=== PATIENT | female | born 2000 | race Caucasian/White ===

== ENCOUNTER 2022-05-29 07:32 | Day surgery (SDC) | payer MEDICAID ==
[~2022-05-29] VITALS: Ht 165.1 cm; Wt 90.0 kg
[2022-05-29] MEDS ORDERED: fentaNYL/PF 50MCG/1 ML 2ML syringe ONE (07:33)
[2022-05-29] MEDS ORDERED: MIDAZolam 1 MG/ML 5ML VIAL ONE (07:33)
[2022-05-29 07:40] VITALS: BP 101/69
[2022-05-29] MEDS ORDERED: METO-292 PO (08:01)
[2022-05-29] MEDS ORDERED: ONDA4TAB12 PO (08:05)
[2022-05-29] MEDS ORDERED: OMEP20CA16 PO (08:06)
[2022-05-29] MEDS ORDERED: DIPH25CA83 PO (08:07)
[2022-05-29] MEDS ORDERED: LIDOcaine Viscous 15ml cup ONE (08:35)
[2022-05-29] MEDS ORDERED: diphenhydrAMINE 50 mg/ml inj ONE (08:35)
[2022-05-29] MEDS ORDERED: ondansetron/PF 4mg/2ml inj ONE (08:59)
[2022-05-29 09:06] VITALS: BP 125/97
[2022-05-29 09:16] VITALS: BP 118/71
[2022-05-29 09:26] VITALS: BP 110/80
== END 2022-05-29 09:53 | disposition home or self-care (01) ==
LOC: GI LAB 07:32
PROVIDERS: ATTEND Internal Medicine Gastroenterology
DX: R11.2 Nausea with vomiting, unspecified (principal); K31.89 Other diseases of stomach and duodenum; F17.210 Nicotine dependence, cigarettes, uncomplicated; Z91.040 Latex allergy status; Z91.011 Allergy to milk products
CPT/HCPCS: 43239; 99152; J1200; J2250; J2405; J3010; J7030; Z7512; A4620

== ENCOUNTER 2022-07-23 11:05 | Emergency (ER) | payer MEDICAID ==
[~2022-07-23 11:05] MED LIST: DIPH25CA83 PO; METO-292 PO; OMEP20CA16 PO; ONDA4TAB12 PO
== END 2022-07-23 12:14 | disposition left against medical advice (07) ==
LOC: ER 11:06
DX: R11.10 Vomiting, unspecified (principal); Z53.21 Procedure and treatment not carried out due to patient leaving prior to being seen by health care provider

== ENCOUNTER 2022-07-26 19:44 | Emergency (ER) | payer MEDICAID ==
[~2022-07-26] VITALS: Ht 167.6 cm; Wt 80.2 kg
--- NOTE | 2022-07-26 20:08 | NUR ---
Pt in [facility]. Pt c/o N/V x11 days. Pt unable keep anything down. Pending providers eval and treatment.
[2022-07-26] MEDS ORDERED: diphenhydrAMINE 50 mg/ml inj IV ONE (20:20)
[2022-07-26] MEDS ORDERED: normal saline 1000ml 1,000 ML IV ONE ×2 (20:20→21:45)
[2022-07-26] MEDS ORDERED: metoclopramide 5 mg/ml inj IV ONE (20:20)
[2022-07-26 20:25] LABS: BASOPHILS # (AUTO) 0.1 X10'3 (0-0.2); BASOPHILS % (AUTO) 0.6 % (0-1); EOSINOPHILS % (AUTO) 0.2 % (0-6); HEMATOCRIT 43.6 % (35.0-45.0); HEMOGLOBIN 14.8 g/dl (12.0-16.0); LYMPHOCYTES # (AUTO) 1.9 X10'3 (1.1-4.8); LYMPHOCYTES % (AUTO) 11.7 % (21-51); MEAN CORPUSCULAR HEMOGLOBIN 28.8 PG (27.0-31.0); MEAN CORPUSCULAR HGB CONC 33.9 g/dL (33.0-36.5); MEAN CORPUSCULAR VOLUME 84.8 FL (78-98); MEAN PLATELET VOLUME 7.6 FL (7.4-10.4); MONOCYTES # (AUTO) 0.8 X10'3 (0-0.9); MONOCYTES % (AUTO) 4.7 % (2-12); NEUTROPHILS # (AUTO) 13.7 X10'3 (1.8-7.7); NEUTROPHILS % (AUTO) 82.8 % (42-75); PLATELET COUNT 413 X10'3 (140-440); RED BLOOD COUNT 5.14 X10'6 (4.20-5.60); WHITE BLOOD COUNT 16.5 X10'3 (4.5-11.0)
[2022-07-26 20:41] LABS: ALANINE AMINOTRANSFERASE 19 U/L (12-78); ALBUMIN 4.6 G/DL (3.4-5.0); ALKALINE PHOSPHATASE 64 IU/L (46-116); ANION GAP 19 (8-16); ASPARTATE AMINO TRANSFERASE 10 U/L (10-37); BILIRUBIN,TOTAL 0.8 MG/DL (0.1-1.0); BLOOD UREA NITROGEN 14 MG/DL (7-18); BUN/CREATININE RATIO 20.6 (10.0-20.0); CALCIUM 10.5 MG/DL (8.5-10.1); CHLORIDE 98 MMOL/L (99-107); CREATININE 0.68 MG/DL (0.40-0.90); GLUCOSE 111 MG/DL (70-104); LIPASE < 50 U/L (73-393); POTASSIUM 3.1 MMOL/L (3.5-5.1); SODIUM 137 MMOL/L (135-145); TOTAL CARBON DIOXIDE 19.7 MMOL/L (24-32); TOTAL PROTEIN 9.2 G/DL (6.4-8.2); eGFR > 90 ML/MIN
[2022-07-26 22:08] VITALS: BP 110/64
[2022-07-26 22:19] LABS: URINE HCG NEGATIVE (NEG)
[2022-07-26 22:22] LABS: CLARITY,URINE CLEAR (Clear); GLUCOSE, URINE NEGATIVE (Neg); KETONES,URINE >=80 mg/dl (Neg); LEUKOCYTE ESTERASE ,URINE NEGATIVE (Neg); NITRITES, URINE NEGATIVE (Neg); OCCULT BLOOD,URINE TRACE-INTACT (Neg); PROTEIN,URINE 100 mg/dl (Neg); UROBILINOGEN,URINE 0.2 E.U/dL (0.2-1.0)
[2022-07-26] MEDS ORDERED: ondansetron/PF 4mg/2ml inj IV ONE (22:25)
[2022-07-26 22:27] LABS: COLOR,URINE AMBER (Yellow); UA COLLECTION TYPE VOIDED
[2022-07-26 22:28] LABS: WBC,URINE 0-4 /HPF (0-4)
[2022-07-26 22:29] LABS: BACTERIA,URINE FEW /HPF (Neg); MUCUS STRANDS MANY /LPF (Neg); SQUAMOUS EPITHELIAL CELL,UR MODERATE /LPF (FEW)
== END 2022-07-26 22:58 | disposition home or self-care (01) ==
LOC: ER 19:45
DX: R11.15 Cyclical vomiting syndrome unrelated to migraine (principal); F17.200 Nicotine dependence, unspecified, uncomplicated; Z91.040 Latex allergy status; Z88.8 Allergy status to other drugs, medicaments and biological substances; Z79.899 Other long term (current) drug therapy; Z79.1 Long term (current) use of non-steroidal anti-inflammatories (NSAID); Z79.2 Long term (current) use of antibiotics
CPT/HCPCS: 80053; 81001; 81025; 83690; 85025; 96361; 96374; 96375; 99284; J1200; J2405; J2765; J7030

== ENCOUNTER 2022-07-28 12:25 | Emergency (ER) | payer MEDICAID ==
[~2022-07-28] VITALS: Ht 167.6 cm; Wt 88.0 kg
[2022-07-28] MEDS ORDERED: haloperidol lactate 5mg/ml inj IM ONE (13:45)
[2022-07-28] MEDS ORDERED: diphenhydrAMINE 50 mg/ml inj IV ONE (13:45)
[2022-07-28] MEDS ORDERED: normal saline 1000ml 1,000 ML IV ONE ×2 (13:45→15:50)
[2022-07-28] MEDS ORDERED: ondansetron/PF 4mg/2ml inj IV ONE (13:45)
[2022-07-28 14:24] LABS: BASOPHILS # (AUTO) 0.1 X10'3 (0-0.2); BASOPHILS % (AUTO) 0.7 % (0-1); EOSINOPHILS % (AUTO) 0.1 % (0-6); HEMATOCRIT 41.1 % (35.0-45.0); HEMOGLOBIN 13.7 g/dl (12.0-16.0); LYMPHOCYTES # (AUTO) 2.7 X10'3 (1.1-4.8); LYMPHOCYTES % (AUTO) 21.9 % (21-51); MEAN CORPUSCULAR HEMOGLOBIN 28.6 PG (27.0-31.0); MEAN CORPUSCULAR HGB CONC 33.5 g/dL (33.0-36.5); MEAN CORPUSCULAR VOLUME 85.5 FL (78-98); MEAN PLATELET VOLUME 7.6 FL (7.4-10.4); MONOCYTES # (AUTO) 1.1 X10'3 (0-0.9); MONOCYTES % (AUTO) 9.2 % (2-12); NEUTROPHILS # (AUTO) 8.4 X10'3 (1.8-7.7); NEUTROPHILS % (AUTO) 68.1 % (42-75); PLATELET COUNT 341 X10'3 (140-440); RED BLOOD COUNT 4.81 X10'6 (4.20-5.60); RED CELL DISTRIBUTION WIDTH 15.7 % (11.5-14.5); WHITE BLOOD COUNT 12.4 X10'3 (4.5-11.0)
[2022-07-28 14:30] LABS: ALANINE AMINOTRANSFERASE 23 U/L (12-78); ALBUMIN 4.3 G/DL (3.4-5.0); ALBUMIN/GLOBULIN RATIO 1.1 (1.1-1.5); ALKALINE PHOSPHATASE 57 IU/L (46-116); ANION GAP 14 (8-16); ASPARTATE AMINO TRANSFERASE 16 U/L (10-37); BILIRUBIN,TOTAL 0.7 MG/DL (0.1-1.0); BLOOD UREA NITROGEN 9 MG/DL (7-18); BUN/CREATININE RATIO 12.7 (10.0-20.0); CALCIUM 10.1 MG/DL (8.5-10.1); CHLORIDE 100 MMOL/L (99-107); CREATININE 0.71 MG/DL (0.40-0.90); GLUCOSE 92 MG/DL (70-104); LIPASE 56 U/L (73-393); MAGNESIUM 1.7 MG/DL (1.5-2.4); POTASSIUM 3.3 MMOL/L (3.5-5.1); SODIUM 141 MMOL/L (135-145); TOTAL CARBON DIOXIDE 27.3 MMOL/L (24-32); TOTAL PROTEIN 8.1 G/DL (6.4-8.2); eGFR > 90 ML/MIN
--- NOTE | 2022-07-28 14:48 | NUR ---
Pt in ER15. Pt conts to c/o N/V. Pt was seen here on Fri for the same issues. Pt staes understanding r/t POC. Pt in agreement. Pending MD lucas and treatment.
[2022-07-28] MEDS ORDERED: PROC25SU31 RC (15:53)
[2022-07-28] MEDS ORDERED: HALO10TA13 PO (15:53)
[2022-07-28] MEDS ORDERED: CAPS60CR6 TP (15:53)
[2022-07-28 16:52] VITALS: BP 127/71
== END 2022-07-28 17:00 | disposition home or self-care (01) ==
LOC: ER 12:25
DX: R11.15 Cyclical vomiting syndrome unrelated to migraine (principal); F17.200 Nicotine dependence, unspecified, uncomplicated; F12.10 Cannabis abuse, uncomplicated; Z59.00 Homelessness unspecified; Z91.040 Latex allergy status; Z79.899 Other long term (current) drug therapy
CPT/HCPCS: 36415; 80053; 83690; 83735; 85025; 96372; 96374; 96375; 99284; J1200; J1630; J2405; J7030

== ENCOUNTER 2022-10-21 14:27 | Emergency (ER) | payer MEDICAID ==
[~2022-10-21] VITALS: Ht 167.6 cm; Wt 86.2 kg
[~2022-10-21 14:27] MED LIST changes: +HALO10TA13 PO
[2022-10-21 14:40] VITALS: BP 130/81
[2022-10-21] MEDS ORDERED: capsaicin 0.025% 60gm cream TP STA (14:43)
[2022-10-21] MEDS ORDERED: normal saline 1000ML IV soln IV ONE (14:45)
[2022-10-21] MEDS ORDERED: famotidine/PF 10 mg/ml inj IV ONE (14:45)
[2022-10-21] MEDS ORDERED: ondansetron/PF 4mg/2ml inj IV ONE (14:45)
[2022-10-21] MEDS ORDERED: haloperidol lactate 5mg/ml inj IM ONE (14:45)
[2022-10-21] MEDS ORDERED: LORazepam 2 mg/ml vial IV ONE (14:45)
[2022-10-21 15:25] LABS: BASOPHILS # (AUTO) 0.1 X10'3 (0-0.2); BASOPHILS % (AUTO) 0.5 % (0-1); EOSINOPHILS % (AUTO) 0.1 % (0-6); HEMATOCRIT 41.5 % (35.0-45.0); HEMOGLOBIN 13.7 g/dl (12.0-16.0); LYMPHOCYTES # (AUTO) 2.2 X10'3 (1.1-4.8); LYMPHOCYTES % (AUTO) 10.4 % (21-51); MEAN CORPUSCULAR HEMOGLOBIN 28.5 PG (27.0-31.0); MEAN CORPUSCULAR VOLUME 86.5 FL (78-98); MEAN PLATELET VOLUME 7.7 FL (7.4-10.4); MONOCYTES # (AUTO) 0.6 X10'3 (0-0.9); MONOCYTES % (AUTO) 3.1 % (2-12); NEUTROPHILS # (AUTO) 17.9 X10'3 (1.8-7.7); NEUTROPHILS % (AUTO) 85.9 % (42-75); PLATELET COUNT 372 X10'3 (140-440); RED CELL DISTRIBUTION WIDTH 13.5 % (11.5-14.5); WHITE BLOOD COUNT 20.8 X10'3 (4.5-11.0)
[2022-10-21 15:32] LABS: HCG SERUM QL NEGATIVE
[2022-10-21 15:37] LABS: ALANINE AMINOTRANSFERASE 17 U/L (12-78); ALBUMIN 4.4 G/DL (3.4-5.0); ALBUMIN/GLOBULIN RATIO 1.2 (1.1-1.5); ALKALINE PHOSPHATASE 78 IU/L (46-116); ANION GAP 16 (8-16); ASPARTATE AMINO TRANSFERASE 14 U/L (10-37); BILIRUBIN,TOTAL 0.6 MG/DL (0.1-1.0); BLOOD UREA NITROGEN 10 MG/DL (7-18); BUN/CREATININE RATIO 11.9 (10.0-20.0); CHLORIDE 105 MMOL/L (99-107); CREATININE 0.84 MG/DL (0.40-0.90); GLUCOSE 103 MG/DL (70-104); MAGNESIUM 1.8 MG/DL (1.5-2.4); POTASSIUM 3.7 MMOL/L (3.5-5.1); SODIUM 140 MMOL/L (135-145); TOTAL CARBON DIOXIDE 19.1 MMOL/L (24-32); TOTAL PROTEIN 8.1 G/DL (6.4-8.2); eGFR 85 ML/MIN
[2022-10-21] MEDS ORDERED: CAPSAICIN 56.6 GM CREAM..G. TP ONE (15:50)
[2022-10-21] MEDS ORDERED: CAPS60CR6 TP (18:35)
[2022-10-21] MEDS ORDERED: PROC25SU31 RC (18:35)
[2022-10-22] MEDS ORDERED: PROC-8 PO (14:54)
== END 2022-10-21 19:13 | disposition left against medical advice (07) ==
LOC: ER 14:28
DX: R11.15 Cyclical vomiting syndrome unrelated to migraine (principal); F12.90 Cannabis use, unspecified, uncomplicated; Z91.040 Latex allergy status; Z56.0 Unemployment, unspecified
CPT/HCPCS: 36415; 80053; 83735; 84145; 84703; 85025; 93005; 99284

== ENCOUNTER 2022-10-22 12:48 | Emergency (ER) | payer MEDICAID ==
[~2022-10-22] VITALS: Ht 167.6 cm; Wt 88.2 kg
[~2022-10-22 12:48] MED LIST changes: +CAPS60CR6 TP; +PROC25SU31 RC
[2022-10-22] MEDS ORDERED: ondansetron 4mg rapidly disintigrating tab PO ONE (14:20)
--- NOTE | 2022-10-22 14:24 | NUR ---
PO CHALLENGE IN PLACE. FOOD PROVIDED.
[2022-10-22] MEDS ORDERED: haloperidol lactate 5mg/ml inj IM ONE (14:50)
[2022-10-22] MEDS ORDERED: normal saline 1000ml 1,000 ML IV ONE (14:50)
[2022-10-22] MEDS ORDERED: PROC-8 PO (14:54)
[2022-10-22 15:45] VITALS: BP 116/70
== END 2022-10-22 16:22 | disposition home or self-care (01) ==
LOC: ER 12:49
DX: R11.15 Cyclical vomiting syndrome unrelated to migraine (principal); F12.220 Cannabis dependence with intoxication, uncomplicated; Z91.040 Latex allergy status; Z56.0 Unemployment, unspecified
CPT/HCPCS: 96372; 99283; J1630; J7030

== ENCOUNTER 2022-10-24 01:16 | Emergency (ER) | payer MEDICAID ==
[~2022-10-24 01:16] MED LIST changes: +PROC-8 PO
== END 2022-10-24 03:18 | disposition left against medical advice (07) ==
LOC: ER 01:17
DX: R11.10 Vomiting, unspecified (principal); Z53.21 Procedure and treatment not carried out due to patient leaving prior to being seen by health care provider

== ENCOUNTER 2025-02-01 10:24 | Emergency (ER) | payer MEDICAID ==
[~2025-02-01] VITALS: Ht 165.1 cm; Wt 115.5 kg
[~2025-02-01 10:24] MED LIST changes: -CAPS60CR6 TP; +ONDA-243 PO; -ONDA4TAB12 PO; -PROC25SU31 RC
--- NOTE | 2025-02-01 11:52 | Physician Documentation ---
History of Present Illness ~ Chief Complaint: Vomiting Stated Complaint: VOMITING Time Seen by MD: 10:39 OK to notify your PCP?: Yes Primary Medical Doctor: [facility] Source: patient, RN/MD Mode of Arrival: POV, Ambulatory HPI Patient is seen today with complaints of cannabinoid hyperemesis syndrome. Patient states she has suffered from this off and on for the last few years. Patient states he stopped smoking cannabis couple years ago but states her brother earlier this year in July at which time she started smoking cannabis again. She states she has taken multiple home test that were negative. She admits to morning sickness. Stating this started a few days ago or week ago. Patient has no other concern or complaint at this time she states she was here last night sitting she is having trouble keeping any liquid or solid down. Medication Reconciliation Allergies: Coded Allergies: latex (Unverified Allergy, Mild, RASH, 01/31/25) Uncoded Allergies: DAIRY (Allergy, Mild, GASSY,ABD PAIN, 05/29/22) Scheduled Diphenhydramine Hcl (Benadryl), 1 CAP PO HS, (Reported) Metoclopramide HCl (Reglan), 1 TAB PO DAILY, (Reported) Omeprazole (Omeprazole), 1 CAP PO DAILY, (Reported) Scheduled PRN Haloperidol (Haloperidol), 1 TAB PO Q12H PRN for nausea/vomiting ONDANSETRON ODT 4mg tablet (Ondansetron Odt), 1 TABLET PO Q6H PRN for NAUSEA, (Reported) ONDANSETRON ODT 4mg tablet (Ondansetron Odt), 1 TAB PO Q6H PRN PRN for nausea/vomiting Prochlorperazine Maleate (Compazine), 1 TAB PO Q6H PRN for nausea/vomiting Past Medical History Past Medical History: *GI/HEPATOBILIARY* Past Surgical History: noncontributory Alcohol Use: Occasionally Drug Use: marijuana Lives with: Mother Lives In: Home Occupation: unemployed Review of Systems Constitutional: Denies: chills, fever, weakness Eyes: Denies: pain, blurred vision ENT: Denies: ear pain, nose pain, throat pain, mouth pain Respiratory: Denies: cough, shortness of breath Cardiovascular: Denies: chest pain, palpitations Gastrointestinal: Denies: abdominal pain, nausea, vomiting Genitourinary: Denies: burning, dysuria Female Genitalia: Denies: vaginal discharge, pelvic pain Neurological: Denies: headache, dizziness Musculoskeletal: Denies: pain, swelling Integumentary: Denies: rash, lesions Allergic/Immunologic: Denies: hives, itching Hematologic/Lymphatic: Denies: no symptoms reported Psychiatric: Denies: depression, anxiety Physical Exam Vital Signs: Temperature: 97.1, Source: Temporal, Heart Rate: 110, Respiratory Rate: 18, BP: 127/80, Pulse Oximetry: 95, Weight: 115.500 Oxygen Flow Rate: 0 Physical Exam General: Awake and Alert, no acute distress. HEENT: Conjunctiva pink, Sclera clear, Mucus Membranes moist. Neck: Supple without masses and tenderness. Resp: Unlabored. Lungs clear to auscultation bilaterally. Heart: Regular Rate and rhythm, normal S1 and S2 without murmur, rub or gallop. Abdomen: Soft and non tender no organomegaly Extremities: No cyanosis,clubbing or edema. Skin: Warm and Dry. Progress Results/Orders Results/Orders Orders - DINH ROSENBERG PAC Saline Lock (02/01/25 ) Hcg, Ur Ql (02/01/25 11:52) Completed Orders - DINH ROSENBERG PAC Olanzapine Im (Zyprexa I.M. Im On (02/01/25 11:47) Normal Saline 1000ml (0.9% Sodium Chlori (02/01/25 11:47) Normal Saline 1000ml (0.9% Sodium Chlori (02/01/25 11:47) Prochlorperazine Inj (Compazine Inj) (02/01/25 11:47) Diphenhydramine Inj (Benadryl Inj.) (02/01/25 11:47) Cbc/Diff (02/01/25 11:52) BMP (02/01/25 11:52) Medications Received in ER Medications (Trade) Dose Ordered Sig/Tahmina Route PRN Reason Start Time Stop Time Status Last Admin Dose Admin (ZyPREXA I.M. IM ONLY) 10 mg ONCE STAT IM 02/01/25 11:47 02/01/25 11:53 DC 02/01/25 12:31 10 MG Sodium Chloride 1,000 ml @ 1,000 mls/hr ONCE STAT IV 02/01/25 11:47 02/01/25 12:46 DC 02/01/25 12:31 1,000 MLS/HR Sodium Chloride 1,000 ml @ 1,000 mls/hr ONCE STAT IV 02/01/25 11:47 02/01/25 12:46 DC 02/01/25 12:30 1,000 MLS/HR (Compazine inj) 10 mg ONCE STAT IV 02/01/25 11:47 02/01/25 11:53 DC 02/01/25 12:31 10 MG (Benadryl inj.) 50 mg ONCE STAT IV 02/01/25 11:47 02/01/25 11:53 DC 02/01/25 12:32 50 MG Vital Signs 02/01/25 02/01/25 10:27 10:42 Temp 97.1 Pulse 110 Resp 18 B/P (MAP) 127/80 Pulse Ox 95 O2 Flow Rate 0 Laboratory Tests Test 02/01/25 12:06 White Blood Count 13.7 H Red Blood Count 4.82 Hemoglobin 13.5 Hematocrit 39.6 Mean Corpuscular Volume 82.2 Mean Corpuscular Hemoglobin 28.0 Mean Corpuscular Hemoglobin Concent 34.0 Red Cell Distribution Width 15.5 H Platelet Count 375 Mean Platelet Volume 8.1 Neutrophils (%) (Auto) 72.8 Lymphocytes (%) (Auto) 18.5 L Monocytes (%) (Auto) 7.9 Eosinophils (%) (Auto) 0.1 Basophils (%) (Auto) 0.7 Neutrophils # (Auto) 10.0 H Lymphocytes # (Auto) 2.5 Monocytes # (Auto) 1.1 H Eosinophils # (Auto) 0.0 Basophils # (Auto) 0.1 CBC Comment Sodium Level 141 Potassium Level 3.5 Chloride Level 103 Carbon Dioxide Level 29.0 Anion Gap 9 Blood Urea Nitrogen 8 Creatinine 0.74 Estimated GFR/1.73 m2 > 90 BUN/Creatinine Ratio 10.8 Glucose Level 112 H Calcium Level 9.1 Albumin 4.0 Chemistry Comments Medical Decision Making Additional information obtaine: N/A Findings Patient is seen today with complaints of cannabinoid hyperemesis syndrome. Patient states she has suffered from this off and on for the last few years. Patient states he stopped smoking cannabis couple years ago but states her brother earlier this year in July at which time she started smoking cannabis again. She states she has taken multiple home test that were negative. She admits to morning sickness. Stating this started a few days ago or week ago. Patient has no other concern or complaint at this time she states she was here last night sitting she is having trouble keeping any liquid or solid down. Patient was given Zyprexa 10 mg IM, Compazine 10 mg IV, 2 L of normal saline IV, Benadryl 50 mg IV. Patient states he is feeling much better in his ready to be discharged home. Patient was given prescription of Zyprexa 10 mg to be taken at night and patient will stop smoking cannabis. Patient will return to ED with any worsening, concerning or changing symptoms. Diff Dx GI Bleed:Consideration: Include: Gastritis, Inflammatory BD Diff Dx Pain:Considerations: Include: Constipation, Gastroenteritis, Ischemic bowel Diff Dx N/V/D:Considerations: Include: DKA, Electrolyte imbalance, Gastroenteritis Diff Dx Rectal:Considerations: Unlikely: Fissure, Fistula, Foreign body, Impaction, Perirectal abscess, Rectal prolapse, Subcutaneous abscess, Thrombosed hemorrhoid, Ulcer, UTI, Other Departure Disposition: HOME / SELF CARE / HOMELESS Impression: Primary Impression: Cannabis hyperemesis syndrome concurrent with and due to cannabis dependence Condition: Improved Discharge Instructions: Cannabinoid Hyperemesis Syndrome Additional Instructions: Patient was given Zyprexa 10 mg IM, Compazine 10 mg IV, 2 L of normal saline IV, Benadryl 50 mg IV. Patient states he is feeling much better in his ready to be discharged home. Patient was given prescription of Zyprexa 10 mg to be taken at night and patient will stop smoking cannabis. Patient will return to ED with any worsening, concerning or changing symptoms. Referrals: NO PRIMARY CARE PROVIDER (PCP) Prescriptions Olanzapine (Olanzapine) 10 Mg Tablet 1 TAB PO HS for 15 Days, #15 TAB 0 Refills Prov: DINH ROSENBERG 02/01/25 Signature Scribe Signature: No scribe Attestation: No scribe DINH ROSENBERG Feb 01, 2025 11:52
[2025-02-01] MEDS: normal saline 1000ml 1,000 ML IV STA ×2 (12:30→12:31)
[2025-02-01] MEDS: OLANZapine **IM** 10 mg inj. IM STA (12:31)
[2025-02-01 12:36] LABS: MEAN PLATELET VOLUME 8.1 FL (7.4-10.4); RED CELL DISTRIBUTION WIDTH 15.5 % (11.5-14.5)
[2025-02-01 12:40] LABS: CREATININE 0.74 MG/DL (0.40-0.90); TOTAL CARBON DIOXIDE 29.0 MMOL/L (24-32); eCRCL 105 ML/MIN; eGFR > 90 ML/MIN
[2025-02-01] MEDS ORDERED: OLAN-38 PO (13:22)
[2025-02-01 13:25] VITALS: BP 136/89; PULSE 67; RESP 18; TEMP 97.1; O2SAT 99
== END 2025-02-01 13:35 | disposition home or self-care (01) ==
LOC: ER 10:25
DX: R11.16 Cannabis hyperemesis syndrome (principal); F12.20 Cannabis dependence, uncomplicated; Z91.040 Latex allergy status; Z79.899 Other long term (current) drug therapy; Z72.89 Other problems related to lifestyle; Z56.0 Unemployment, unspecified
CPT/HCPCS: 36415; 80048; 85025; 96361; 96372; 96374; 96375; 99284; J0780; J1200; J3490; J7030